=== PATIENT | male | born 1990 | race Caucasian/White ===

== ENCOUNTER → 2020-05-16 | Outpatient (CLI) | payer OTHER, SELFPAY ==
--- NOTE | 2020-05-16 | VAS_PTH ---
PATIENT: ABBY SOSA LOC: [facility] U#:[id number] AGE/SX: 29/M ROOM: RE05/16/[address]: Dr. Nagi Sneed MD : [id number] BED: DIS: 05/16/2020 SPEC #: [id number] RECD: 05/16/20 15:56 STATUS: BROOK REQ #: [id number] ANCELMO: 05/16/20 00:[address]: Nagi Sneed DEPT: SURGICAL PATHOLOGY RECD BY: Salazar Lazaro ENTERED: 05/19/20 07:44 SP TYPE: VAS OTHR DR: Dr. Soham Bee MD Tissues: A - Vas deferens, NOS B - Vas deferens, NOS Procedures: Surgery Specimen Level II HEADER OPERATION: Bilateral partial vasectomy PRE-OP DIAGNOSIS: Sterilization TISSUE SUBMITTED: A - Right vas deferens, B - Left vas deferens MICROSCOPIC DIAGNOSIS A. Right vas deferens, vasectomy: Complete cross-section of vas deferens with no pathologic change. B. Left vas deferens, vasectomy: Complete cross-section of vas deferens with no pathologic change. AM:bc 05/20/2020 MICROSCOPIC DESCRIPTION Slides are reviewed. GROSS DESCRIPTION A - Received is one container designated right vas deferens. The specimen consists of a tubular segment of vela soft tissue measuring 1.5 cm in length and 0.2 cm in diameter. The entire specimen is submitted in one cassette. It will be sectioned at the time of embedding. B - Received is one container designated left vas deferens. The specimen consists of a tubular segment of vela soft tissue measuring 2.2 cm in length and 0.2 cm in diameter. The entire specimen is submitted in one cassette. It will be sectioned at the time of embedding. / SJ:bc 05/19/20 TC:5 CPT: 16207 x2
== END | disposition home or self-care (01) ==
LOC: LABSPEC 16:22
PROVIDERS: PCP Family Medicine; Referring Provider Surgery; Visit Provider Surgery
DX: Z30.2 Encounter for sterilization (principal)
CPT/HCPCS: 88302

== ENCOUNTER → 2020-06-24 12:34 | Outpatient (CLI) | payer OTHER, SELFPAY ==
[2020-06-25 12:22] LABS: Semen Analysis Post Vas REVIEWED
== END ==
PROVIDERS: PCP Family Medicine; Referring Provider Surgery; Visit Provider Surgery
DX: Z30.2 Encounter for sterilization (principal)
CPT/HCPCS: 89321

== ENCOUNTER → 2020-07-02 11:42 | Outpatient (CLI) | payer OTHER, SELFPAY ==
[2020-07-03 14:23] LABS: Semen Analysis Post Vas ABSENT
== END ==
PROVIDERS: PCP Family Medicine; Referring Provider Surgery; Visit Provider Surgery
DX: Z30.2 Encounter for sterilization (principal)
CPT/HCPCS: 89321

== ENCOUNTER → 2022-03-17 | Outpatient (CLI) | payer SELFPAY ==
--- NOTE | 2022-03-17 17:11 | MRI_ITS ---
EXAM: MR THORACIC SPINE WITHOUT INTRAVENOUS CONTRAST CLINICAL INDICATION: ACUTE MYELOPATHY,DISC DISORDER,MID BACK PAIN,NEURO DEFICIT TECHNIQUE: Multiplanar and multisequence MR images of the thoracic spine without intravenous contrast. This report was created using [employer] report [employer] technology. COMPARISON: None. FINDINGS: VERTEBRAE: Unremarkable. No fracture. Normal vertebral bodies and posterior elements. Normal alignment. There is preservation of the normal thoracic kyphosis. No scoliosis. DISCS/SPINAL CANAL/NEURAL FORAMINA: Small disc protrusion at T7-8 causes minimal cord flattening. No canal or foraminal stenosis. Remaining levels show no disc protrusion, canal or foraminal stenosis. SPINAL CORD: Small thoracic syrinx extending from T5 through T9 levels, measuring up to 1 x 4 mm at the T8 level. No demonstrated cord lesion. SOFT TISSUES: Unremarkable. MRI/Spine Thoracic (Routine) IMPRESSION: Thoracic syrinx. Postcontrast sequences are recommended to exclude intramedullary mass lesion. Small T7-8 disc protrusion. Electronically Signed: Gia Zhu MD at 21:14 EST Reading Location ID and State: [id number] / Tel , Service support ,
--- NOTE | 2022-03-17 17:48 | MRI_ITS ---
EXAM: MR LUMBAR SPINE WITHOUT INTRAVENOUS CONTRAST CLINICAL INDICATION: RADICULOPATHY, LOW BACK PAIN NEURO DEFICIT,OSTEOPOROSIS TECHNIQUE: Multiplanar and multisequence MR images of the lumbar spine without intravenous contrast. This report was created using [employer] report [employer] technology. COMPARISON: None. FINDINGS: VERTEBRAE: Unremarkable. Vertebral body heights are preserved. Normal vertebral bodies and posterior elements. Normal alignment. No spondylolisthesis. There is preservation of the normal lumbar lordosis. SPINAL CORD: Normal position and signal intensity of the conus medullaris. SOFT TISSUES: Unremarkable. DISCS/SPINAL CANAL/NEURAL FORAMINA: L1-L2: Unremarkable. Normal disc height and morphology. Normal spinal canal and lateral recesses. Normal neuroforamina. L2-L3: Unremarkable. Normal disc height and morphology. Normal spinal canal and lateral recesses. Normal neuroforamina. L3-L4: Unremarkable. Normal disc height and morphology. Normal spinal canal and lateral recesses. Normal neuroforamina. L4-L5: Unremarkable. Normal disc height and morphology. Normal spinal canal and lateral recesses. Normal neuroforamina. L5-S1: Unremarkable. Normal disc height and morphology. Normal spinal canal and lateral recesses. Normal neuroforamina. MRI/Spine Lumbar (Routine) IMPRESSION: Unremarkable MRI of the lumbar spine. Electronically Signed: Gia Zhu MD at 21:22 EST Reading Location ID and State: [id number] / Tel , Service support ,
== END | disposition home or self-care (01) ==
PROVIDERS: PCP Family Medicine; Referring Provider Internal Medicine Rheumatology; Visit Provider Internal Medicine Rheumatology
DX: G95.9 Disease of spinal cord, unspecified (principal); R20.2 Paresthesia of skin; R29.898 Other symptoms and signs involving the musculoskeletal system; M89.9 Disorder of bone, unspecified; M94.9 Disorder of cartilage, unspecified; R76.8 Other specified abnormal immunological findings in serum; R53.83 Other fatigue; M51.9 Unspecified thoracic, thoracolumbar and lumbosacral intervertebral disc disorder; M54.16 Radiculopathy, lumbar region
CPT/HCPCS: 72146; 72148